=== PATIENT | female | born 1955 | race Caucasian/White ===

== ENCOUNTER 2017-10-17 02:29 | Emergency (ER) | payer BC ==
[2017-10-17] MEDS ORDERED: Ketorolac 30 MG/ML SDV IM ONE (02:49)
[2017-10-17] MEDS ORDERED: Ondansetron 4 MG/2 ML SDV IVPUSH ONE (02:50)
[2017-10-17] MEDS ORDERED: Sodium Chloride 0.9% 10 ML Syringe FLUSH PRN (02:50)
[2017-10-17] MEDS ORDERED: Sodium Chloride 0.9% 1,000 ML IV ONE (02:50)
--- NOTE | 2017-10-17 03:00 | EDM.PDOC ---
ED HPI GENERAL MEDICAL PROBLEM - General Chief Complaint: Flank Pain Stated Complaint: Right Flank Pain Time Seen by Provider: 10/17/17 03:30 Source of Information: Reports: Patient History Limitations: Reports: No Limitations - History of Present Illness INITIAL COMMENTS - FREE TEXT/NARRATIVE: Patient comes in today with 3 day history of right flank pain. Patient states it does not radiate is progressively getting worse 3 days. She has decreased urine output she has had episodes of sweating but denies any fever. Denies any abdominal discomfort and diarrhea. She did have diarrhea approximately week ago that subsided prior to the pain that has become on Wednesday. Patient denies any nausea or vomiting. Onset: Gradual Duration: Getting Worse Location: Reports: Back Quality: Reports: Sharp, Stabbing Severity: Severe Improves with: Reports: Immobilization Worsens with: Reports: Movement Associated Symptoms: Reports: Diaphoresis, Loss of Appetite. Denies: Headaches , Malaise, Nausea/Vomiting, Rash, Seizure, Shortness of Breath, Syncope, Weakness Right Flank Pain Score (Numeric/FACES): 8 - Related Data Allergies Allergy/AdvReac Type Severity Reaction Status Date / Time Sulfa (Sulfonamide Allergy Nausea and Verified 10/17/17 02:31 Antibiotics) Vomiting Home Meds: Home Meds Levothyroxine Sodium [Levo-T] 100 mcg PO DAILY 10/17/17 [History] ED ROS GENERAL - Review of Systems Review Of Systems: See Below Constitutional: Reports: Diaphoresis HEENT: Reports: No Symptoms Respiratory: Reports: No Symptoms Cardiovascular: Reports: No Symptoms Endocrine: Reports: No Symptoms GI/Abdominal: Reports: Decreased Appetite. Denies: Abdominal Pain, Anorexia, Black Stool, Bloody Stool, Constipation, Diarrhea, Difficulty Swallowing : Reports: Flank Pain, Urinary Retention. Denies: Discharge, Dysuria, Frequency, Hematuria, Incontinence, Urgency Musculoskeletal: Reports: No Symptoms Skin: Reports: No Symptoms ED EXAM, RENAL/ - Physical Exam Exam: See Below Exam Limited By: No Limitations General Appearance: WD/WN, No Apparent Distress Respiratory/Chest: No Respiratory Distress, Lungs Clear, Normal Breath Sounds, No Accessory Muscle Use, Chest Non-Tender Cardiovascular: Normal Peripheral Pulses, Regular Rate, Rhythm, No Edema, No Gallop, No JVD, No Murmur, No Rub GI/Abdominal: Normal Bowel Sounds, Soft, Non-Tender, No Organomegaly, No Distention, No Abnormal Bruit, No Mass, Pelvis Stable Back Exam: CVA Tenderness (R). No: Decreased Range of Motion, Muscle Spasm, Paraspinal Tenderness, Vertebral Tenderness Extremities: Normal Inspection, Normal Range of Motion, Non-Tender, No Pedal Edema, Normal Capillary Refill Neurological: Alert, Oriented, CN II-XII Intact, Normal Cognition, Normal Gait Psychiatric: Normal Affect, Normal Mood Skin Exam: Warm, Dry, Intact, Normal Color, No Rash Course - Vital Signs Last Recorded V/S: Last Vital Signs Temp 36.6 C 10/17/17 03:30 Pulse 78 10/17/17 03:30 Resp 16 10/17/17 03:30 BP 145/92 H 10/17/17 03:30 Pulse Ox 93 L 10/17/17 03:30 - Orders/Labs/Meds Orders: Active Orders 24 hr Category Date Time Status Abdomen Pelvis wo Cont [CT] Stat Exams 10/17/17 03:30 Taken Sodium Chloride 0.9% [Saline Flush] Med 10/17/17 02:50 Active 10 ml FLUSH ASDIRECTED PRN Peripheral IV Insertion Adult [OM.PC] Routine Oth 10/17/17 02:50 Ordered Medication Orders Sodium Chloride (Saline Flush) 10 ml FLUSH ASDIRECTED PRN PRN Reason: Keep Vein Open Last Admin: 10/17/17 03:06 Dose: 10 ml Labs: Laboratory Tests 10/17/17 10/17/17 Range/Units 03:10 03:10 WBC 6.4 (4.0-10.0) x10^3/uL RBC 4.12 (4.00-5.50) x10^6/uL Hgb 12.2 (12.0-16.0) g/dL Hct 36.6 (33.0-47.0) % MCV 88.8 D (78.0-93.0) fL MCH 29.6 (26.0-32.0) pg MCHC 33.3 (32.0-36.0) g/dL RDW Coeff of Lisseth 15.0 (10.0-15.0) % Plt Count 345 (130-400) x10^3/uL Neut % (Auto) 57.2 (50.0-80.0) % Lymph % (Auto) 25.0 (25.0-50.0) % [place] % (Auto) 15.9 H (2.0-11.0) % Eos % (Auto) 1.6 (0.0-4.0) % Baso % (Auto) 0.3 (0.2-1.2) % Sodium 145 (136-145) mmol/L Potassium 4.1 (3.5-5.1) mmol/L Chloride 109 H (98-107) mmol/L Carbon Dioxide 26 (21-32) mmol/L BUN 15 (7-18) mg/dL Creatinine 0.8 (0.55-1.02) mg/dL Est Cr Clr Drug Dosing TNP Estimated GFR (MDRD) > 60 Glucose 93 (74-106) mg/dL Calcium 8.9 (8.5-10.1) mg/dL Corrected Calcium 9.78 (8.5-10.1) mg/dL Total Bilirubin 0.4 (0.2-1.0) mg/dL AST 29 (15-37) U/L ALT 29 (14-59) U/L Alkaline Phosphatase 80 (46-116) U/L Total Protein 7.1 (6.4-8.2) g/dL Albumin 2.9 L (3.4-5.0) g/dL Globulin 4.2 Albumin/Globulin Ratio 0.69 Meds: Medications Generic Name Dose Route Start Last Admin Trade Name Aldo PRN Reason Stop Dose Admin Sodium Chloride 10 ml 10/17/17 02:50 10/17/17 03:06 Saline Flush FLUSH 10 ml ASDIRECTED PRN Administration Keep Vein Open Discontinued Medications Generic Name Dose Route Start Last Admin Trade Name Aldo PRN Reason Stop Dose Admin Sodium Chloride 1,000 mls @ 500 mls/hr 10/17/17 02:50 10/17/17 03:05 Normal Saline IV 10/17/17 04:49 500 mls/hr ONETIME ONE Administration Ketorolac Tromethamine 30 mg 10/17/17 02:49 10/17/17 03:03 Toradol IM 10/17/17 02:50 Not Given ONETIME ONE Ketorolac Tromethamine 30 mg 10/17/17 03:01 10/17/17 03:04 Toradol IVPUSH 10/17/17 03:02 30 mg ONETIME ONE Administration Ondansetron HCl 4 mg 10/17/17 02:50 10/17/17 03:02 Zofran IVPUSH 10/17/17 02:51 4 mg ONETIME ONE Administration Tramadol HCl 1 packet 10/17/17 04:31 10/17/17 04:35 Take Home: Tramadol 50 Mg, 4 Tab Pack PO 10/17/17 04:32 1 packet ONETIME ONE Administration - Re-Assessments/Exams Free Text/Narrative Re-Assessment/Exam: 10/17/17 04:07 reassessment: AxO, VSS, pain free. Departure - Departure Time of Disposition: 04:30 Disposition: Home, Self-Care 01 Condition: Good Clinical Impression: Ovarian cyst rupture - Discharge Information Instructions: Ovarian Cyst, [id number] Referrals: Nidia Gonzáles MD [Primary Care Provider] - Forms: ED Department Discharge Additional Instructions: drink plenty of fluids Rest Avoid vigorous exercise for 3-4 days Take pain medications as prescribed for discomfort - My Orders Last 24 Hours: My Active Orders 10/17/17 02:50 Sodium Chloride 0.9% [Saline Flush] 10 ml FLUSH ASDIRECTED PRN Peripheral IV Insertion Adult [OM.PC] Routine 10/17/17 03:30 Abdomen Pelvis wo Cont [CT] Stat - Assessment/Plan Last 24 Hours: My Active Orders 10/17/17 02:50 Sodium Chloride 0.9% [Saline Flush] 10 ml FLUSH ASDIRECTED PRN Peripheral IV Insertion Adult [OM.PC] Routine 10/17/17 03:30 Abdomen Pelvis wo Cont [CT] Stat
[2017-10-17] MEDS ORDERED: Ketorolac 30 MG/ML SDV IVPUSH ONE (03:01)
[2017-10-17 03:34] LABS: CHLORIDE,CL 109 mmol/L (98-107); SODIUM,NA 145 mmol/L (136-145)
[2017-10-17] MEDS ORDERED: Take Home: traMADol 50 MG, 4 Tab Pack PO ONE (04:31)
== END 2017-10-17 04:40 | disposition home or self-care (01) ==
LOC: VM.ED 02:29
DX: N83.209 Unspecified ovarian cyst, unspecified side (principal); Z88.2 Allergy status to sulfonamides; Z79.899 Other long term (current) drug therapy
CPT/HCPCS: 36415; 74176; 80053; 85025; 96365; 96375; 99284; A9270; J1885; J2405; J7040; J7050

== ENCOUNTER 2017-10-18 16:35 | Emergency (ER) | payer BC ==
[2017-10-18] MEDS ORDERED: Sodium Chloride 0.9% 10 ML Syringe FLUSH PRN (16:38)
[2017-10-18] MEDS ORDERED: Ketorolac 30 MG/ML SDV IVPUSH ONE (16:39)
[2017-10-18] MEDS ORDERED: Iopamidol 612 MG/ML 100 ML Bottle IVPUSH ONE (16:55)
--- NOTE | 2017-10-18 17:05 | EDM.PDOC ---
ED HPI GENERAL MEDICAL PROBLEM - General Chief Complaint: Flank Pain Stated Complaint: Right Flank Pain Time Seen by Provider: 10/18/17 16:36 Source of Information: Reports: Patient, Old Records, Provider, RN, RN Notes Reviewed History Limitations: Reports: No Limitations - History of Present Illness INITIAL COMMENTS - FREE TEXT/NARRATIVE: Patient presents the emergency room at [facility] for continued workup of right flank pain that started last Wednesday. The patient was seen in this emergency room on October 17 in the pneumatic riveter for a chief complaint of right flank pain. During the patient's visit she did have blood work completed which did not show any etiology for her symptoms. Her urines were also okay at that time. The patient did have a noncontrast CT scan of the abdomen and pelvis which showed the patient may possibly have a ruptured ovarian cyst. The patient states that she is postmenopausal and has never had any BUTTON P[employer]HER problems in the past. The patient was given Toradol IV and sent home with a tramadol packet. The patient was in to see her primary care provider today who repeated imaging with a plain film x-ray. The primary care provider discussed the imaging studies with the radiologist who recommended a repeat CAT scan of the abdomen and pelvis with contrast. The patient states that she is drinking fluids okay. The patient states that she continues to have the sharp and stabbing right flank pain that now radiates to behind the right breast and the right shoulder. The patient denies any UTI symptoms. The patient denies any injury or trauma to her back. The patient states that pain also feels like a spasm. The patient denies any vomiting. The patient has felt nauseated at times. The patient states her appetite has been fine however the patient states approximately one half hour after eating she has a bout of diarrhea. The patient states that she does not strain when she has bowel movements. The patient states that her back feels quite sore. The patient does ambulate with guarded movement. The patient does have a sickly appearance. Onset Date: 10/15/17 Duration: Colic, Waxing/Waning Location: Reports: Back (Right flank), Radiates to (right shoulder and behind the right breast) Quality: Reports: Sharp, Stabbing Severity: Moderate Improves with: Reports: Rest Worsens with: Reports: Movement Context: Denies: Sick Contact, Trauma Associated Symptoms: Reports: Nausea/Vomiting Right Flank Pain Score (Numeric/FACES): 5 - Related Data Allergies Allergy/AdvReac Type Severity Reaction Status Date / Time Sulfa (Sulfonamide Allergy Nausea and Verified 10/18/17 17:16 Antibiotics) Vomiting Home Meds: Home Meds Levothyroxine Sodium [Levo-T] 100 mcg PO DAILY 10/17/17 [History] Past Medical History HEENT History: Reports: Impaired Vision Endocrine/Metabolic History: Reports: Hypothyroidism Social & Family History - Tobacco Use Smoking Status *Q: Never Smoker - Recreational Drug Use Recreational Drug Use: No ED ROS GENERAL - Review of Systems Review Of Systems: See Below Constitutional: Denies: Fever, Chills, Weakness, Decreased Appetite Respiratory: Denies: Shortness of Breath, Cough Cardiovascular: Denies: Chest Pain, Palpitations GI/Abdominal: Reports: Nausea. Denies: Black Stool, Bloody Stool, Diarrhea, Vomiting : Reports: Flank Pain (Right) Musculoskeletal: Reports: Shoulder Pain (Right) Skin: Reports: No Symptoms Neurological: Denies: Dizziness, Headache ED EXAM, GENERAL - Physical Exam Exam: See Below Exam Limited By: No Limitations General Appearance: Alert, No Apparent Distress Respiratory/Chest: No Respiratory Distress, Lungs Clear, Normal Breath Sounds Cardiovascular: Normal Peripheral Pulses, Regular Rate, Rhythm Peripheral Pulses: 2+: Radial (L), Radial (R) GI/Abdominal: Normal Bowel Sounds, Soft, Non-Tender Back Exam: CVA Tenderness (R), Decreased Range of Motion (due to right flank pain) Neurological: Alert, Oriented Skin Exam: Warm, Dry, Intact, Normal Color, No Rash Course - Vital Signs Last Recorded V/S: Last Vital Signs Temp 37.5 C 10/18/17 16:45 Pulse 81 10/18/17 16:45 Resp 16 10/18/17 16:45 BP 137/90 10/18/17 16:45 Pulse Ox 98 10/18/17 16:45 - Orders/Labs/Meds Orders: Active Orders 24 hr Category Date Time Status Abdomen Pelvis w Cont [CT] Stat Exams 10/18/17 16:38 Taken Sodium Chloride 0.9% [Saline Flush] Med 10/18/17 16:38 Active 10 ml FLUSH ASDIRECTED PRN Peripheral IV Insertion Adult [OM.PC] Routine Oth 10/18/17 16:38 Ordered Medication Orders Sodium Chloride (Saline Flush) 10 ml FLUSH ASDIRECTED PRN PRN Reason: Keep Vein Open Labs: Laboratory Tests 10/18/17 10/18/17 Range/Units 16:48 16:48 Lactic Acid 0.6 (0.4-2.0) mmol/L Total Bilirubin 0.2 (0.2-1.0) mg/dL Direct Bilirubin 0.10 (0.00-0.20) mg/dL AST 31 (15-37) U/L ALT 34 (14-59) U/L Alkaline Phosphatase 91 (46-116) U/L C-Reactive Protein 5.8 H (<=0.9) mg/dL Total Protein 7.6 (6.4-8.2) g/dL Albumin 3.3 L (3.4-5.0) g/dL Globulin 4.3 Albumin/Globulin Ratio 0.77 Meds: Medications Generic Name Dose Route Start Last Admin Trade Name Freq PRN Reason Stop Dose Admin Sodium Chloride 10 ml 10/18/17 16:38 Saline Flush FLUSH ASDIRECTED PRN Keep Vein Open Discontinued Medications Generic Name Dose Route Start Last Admin Trade Name Freq PRN Reason Stop Dose Admin Iopamidol 100 ml 10/18/17 16:55 Isovue-300 (61%) IVPUSH 10/18/17 16:56 ONETIME ONE Ketorolac Tromethamine 30 mg 10/18/17 16:39 10/18/17 17:21 Toradol IVPUSH 10/18/17 16:40 30 mg ONETIME ONE Administration - Radiology Interpretation Free Text/Narrative:: CT Abd/Pelvis w/contrast: Small volume free fluid in the pelvis has slightly increase; new or increased trace right pleural effusion; a mild thick-walled appearance of the distal transverse colon is new relative to the prior study. Lack of distention is favored over early colitis See scanned report in EMR CT Results Date: 10/18/17 CT Results Time: 17:48 Departure - Departure Time of Disposition: 18:28 Disposition: Home, Self-Care 01 Condition: Good Clinical Impression: Abdominal pain, Right flank pain - Discharge Information Instructions: Flank Pain, [id number] Referrals: Nidia Gonzáles MD [Primary Care Provider] - Forms: ED Department Discharge - Problem List Review Problem List Initiated/Reviewed/Updated: Yes - My Orders Last 24 Hours: My Active Orders 10/18/17 16:38 Abdomen Pelvis w Cont [CT] Stat Sodium Chloride 0.9% [Saline Flush] 10 ml FLUSH ASDIRECTED PRN Peripheral IV Insertion Adult [OM.PC] Routine - Assessment/Plan Last 24 Hours: My Active Orders 10/18/17 16:38 Abdomen Pelvis w Cont [CT] Stat Sodium Chloride 0.9% [Saline Flush] 10 ml FLUSH ASDIRECTED PRN Peripheral IV Insertion Adult [OM.PC] Routine Plan: Labs and CT reviewed with patient. Recommend follow up with PCP. No change with any medications. Will contact Radiologist for further discussion.
== END 2017-10-18 18:33 | disposition home or self-care (01) ==
LOC: VM.ED 16:35
DX: R10.11 Right upper quadrant pain (principal); E03.9 Hypothyroidism, unspecified; Z88.2 Allergy status to sulfonamides; Z79.899 Other long term (current) drug therapy
CPT/HCPCS: 36415; 74022; 74177; 80048; 80076; 81003; 83605; 85025; 86140; 96374; 99284; J1885; Q9967

== ENCOUNTER 2018-03-09 06:29 | Day surgery (SDC) | payer BC ==
[2018-03-09] MEDS: Lactated Ringers 1,000 ML IV SCH (07:28)
[2018-03-09] MEDS ORDERED: Simethicone Drops 40 MG/0.6 ML 30 ML Bottle ONE (07:36)
[2018-03-09] MEDS ORDERED: fentaNYL 100 MCG/2 ML SDV ONE (07:41)
[2018-03-09] MEDS ORDERED: Propofol 200 MG/20 ML SDV ONE (07:41)
[2018-03-09] MEDS ORDERED: Midazolam 1 MG/ML 2 ML SDV ONE (07:41)
--- NOTE | 2018-03-09 10:58 | OR ---
PREOPERATIVE DIAGNOSIS: Positive FIT test. POSTOPERATIVE DIAGNOSIS: Normal colonoscopic exam. PROCEDURE PROPOSED: Total flexible colonoscopy. PROCEDURE DONE: Total flexible colonoscopy. INDICATION: This is a 62-year-old female, who was found on recent annual physical to have a positive FIT test and was referred for colonoscopic exam. She denies any symptomatology and she has a negative family history for colon cancer. TECHNIQUE: The patient was brought to the endoscopy suite, placed in left lateral decubitus position. She was sedated per [employer] with propofol. The flexible video colonoscope was then passed transanally and under visualization advanced to the cecum. Examination reveals normal ascending, transverse, descending, sigmoid, and rectal colon. There was no evidence of any diverticulosis, polyps, colitis, or other abnormalities and the scope was then withdrawn. She tolerated the procedure well. FINAL IMPRESSION: Essentially normal colonoscopic exam. PLAN: The patient was reassured. I felt she could wait 10 years before she needs a repeat colonoscopy. SCM: 03/09/2018 08:14:28 MODL: 03/09/2018 08:44:27 /[id number]
== END 2018-03-09 09:20 | disposition home or self-care (01) ==
LOC: VM.SDS 06:29
PROVIDERS: ATTEND Surgery
DX: R19.5 Other fecal abnormalities (principal); E03.9 Hypothyroidism, unspecified; D50.0 Iron deficiency anemia secondary to blood loss (chronic); M06.89 Other specified rheumatoid arthritis, multiple sites; Z79.899 Other long term (current) drug therapy; Z88.2 Allergy status to sulfonamides
CPT/HCPCS: 45378; J2250; J2704; J3010; J7120